=== PATIENT | female | born 1995 | race Caucasian/White ===

== ENCOUNTER 2021-12-13 03:25 | Inpatient (IN) | payer OTHER ==
[2021-12-13] MEDS ORDERED: ELECTROLYTE-148 SOLN 500 ML IV SCH ×2 (04:10→05:10)
[2021-12-13 06:39] VITALS: BMI 34.4
[2021-12-13 07:59] LABS: BASO % 0.2 % (0-2.0); EOS % 0.5 % (0-4.5); HEMATOCRIT 31.6 % (32.4-45.2); HEMOGLOBIN 10.7 GM/dL (10.7-15.3); LYMPH % 20.7 % (8-40); MCH 30.2 pg (25.7-33.7); MCHC 33.9 g/dl (32.0-36.0); MEAN CELL VOLUME 89.2 fl (80-96); MEAN PLT VOLUME 7.3 fl (7.5-11.1); MONO % 6.8 % (3.8-10.2); NEUT % 71.8 % (42.8-82.8); PLATELET COUNT 268 10^3/uL (134-434); RBC 3.54 M/mm3 (3.60-5.2); RDW 14.6 % (11.6-15.6); WHITE BLOOD COUNT 9.1 K/mm3 (4.0-10.0)
[2021-12-13 08:12] LABS: INR 1.08 (0.83-1.09); PROTHROMBIN TIME (PATIENT) 12.4 SEC (9.7-13.0)
[2021-12-13 08:17] LABS: ALBUMIN 2.5 g/dl (3.4-5.0); BLOOD UREA NITROGEN 4.7 mg/dL (7-18); CALCIUM 8.2 mg/dL (8.5-10.1)
[2021-12-13 08:20] LABS: CREATININE 0.4 mg/dL (0.55-1.3)
[2021-12-13 08:22] LABS: BILIRUBIN,TOTAL 0.2 mg/dL (0.2-1)
[2021-12-13] MEDS ORDERED: OXYTOCIN 30 UNITS in 0.9% NS 30 UNIT/500 ML INFUS.BAG IVPB ONE (08:31)
[2021-12-13] MEDS ORDERED: PROMETHAZINE HCL 25 MG/1 ML VIAL IVPUSH ONE (08:56)
[2021-12-13] MEDS ORDERED: BUTORPHANOL TARTRATE 1 MG/ML VIAL IVPUSH PRN (08:56)
[2021-12-13] MEDS ORDERED: OXYTOCIN 30 UNITS in 0.9% NS 30 UNIT/500 ML INFUS.BAG IVPB SCH (09:00)
[2021-12-13] MEDS ORDERED: BUTORPHANOL TARTRATE 2 MG/ML VIAL ONE (10:16)
[2021-12-13] MEDS ORDERED: PROMETHAZINE HCL 25 MG/1 ML VIAL ONE (10:16)
[2021-12-13] MEDS ORDERED: OXYTOCIN 20 UNITS in 0.9% NS 20 UNIT/1,000 ML INFUS.BAG IV ONE (13:41)
[2021-12-13 14:47] LABS: CORD BASE EXCESS -3.5 mmol/L (0-2); CORD HCO3 23.5 mmHg (20-29); CORD PCO2 49.7 mmHg (30-78); CORD pH 7.293 (7.14-7.44)
[2021-12-13 14:49] LABS: CORD BASE EXCESS -2.6 mmol/L (0-2); CORD HCO3 23.2 mmHg (20-29); CORD PCO2 43.6 mmHg (30-78); CORD pH 7.343 (7.14-7.44)
[2021-12-13] MEDS ORDERED: BISACODYL 10 MG SUPP.RECT RC PRN (16:49)
[2021-12-13] MEDS ORDERED: METHYLERGONOVINE MALEATE 0.2 MG/1 ML AMP IM PRN (16:49)
[2021-12-13] MEDS ORDERED: oxyCODONE HCL 5 MG TABLET PO PRN (16:49)
[2021-12-13] MEDS ORDERED: BENZOCAINE 20% 57 GM BOTTLE TP PRN (16:49)
[2021-12-13] MEDS ORDERED: WITCH HAZEL 50% (TUCKS) 40 PAD/JAR PAD TP PRN (16:49)
[2021-12-13] MEDS ORDERED: BENZOCAINE 28 GM HEMORRHOIDAL OINTMENT TP PRN (16:49)
[2021-12-13] MEDS ORDERED: ACETAMINOPHEN 325 MG TABLET (FP) PO PRN (16:49)
[2021-12-13] MEDS ORDERED: OXYTOCIN 20 UNITS in 0.9% NS 20 UNIT/1,000 ML INFUS.BAG IV SCH (17:00)
[2021-12-13] MEDS: IBUPROFEN 600 MG TABLET (FP) PO PRN (19:56)
[2021-12-14 08:10] LABS: BASO % 0.3 % (0-2.0); EOS % 0.6 % (0-4.5); HEMATOCRIT 29.4 % (32.4-45.2); HEMOGLOBIN 10.1 GM/dL (10.7-15.3); LYMPH % 25.9 % (8-40); MCH 30.9 pg (25.7-33.7); MCHC 34.4 g/dl (32.0-36.0); MEAN CELL VOLUME 89.8 fl (80-96); MEAN PLT VOLUME 7.1 fl (7.5-11.1); NEUT % 67.2 % (42.8-82.8); PLATELET COUNT 235 10^3/uL (134-434); RBC 3.27 M/mm3 (3.60-5.2); RDW 14.4 % (11.6-15.6); WHITE BLOOD COUNT 9.3 K/mm3 (4.0-10.0)
[2021-12-14] MEDS: IBUPROFEN 600 MG TABLET (FP) PO PRN ×2 (09:29→20:53)
[2021-12-14] MEDS ORDERED: SENNOSIDES/DOCUSATE COMBO (SENNA PLUS) TABLET (UD) PO PRN (22:00)
[2021-12-15 13:13] VITALS: BP 100/61; PULSE 74; RESP 16; TEMP 98.4
== END 2021-12-15 13:45 | disposition home or self-care (01) | DRG 560 ==
LOC: JDEL 03:25 → JLDR 05:50 → J3W 16:00
PROVIDERS: ADMIT Obstetrics & Gynecology; ATTEND Obstetrics & Gynecology
PROC: 10E0XZZ Delivery of Products of Conception, External Approach (ICD-10-PCS; principal; 2021-12-13)
PROC: 0HQ9XZZ Repair Perineum Skin, External Approach (ICD-10-PCS; 2021-12-13)
PROC: 0W8NXZZ Division of Female Perineum, External Approach (ICD-10-PCS; 2021-12-13)
DX: O70.0 First degree perineal laceration during delivery (principal); Z3A.39 39 weeks gestation of pregnancy; Z37.0 Single live birth
CPT/HCPCS: 36415; 36600; 59409; 80053; 82803; 85025; 85610; 85730; 86762; 86780; 86850; 86900; 86901; 87340; C9803-CS; U0003; U0005